=== PATIENT | female | born 1975 | race Caucasian/White ===

== ENCOUNTER 2020-01-02 07:45 | Day surgery (SDC) | payer OTHER ==
[~2020-01-02] VITALS: Ht 170.2 cm; Wt 70.8 kg
--- NOTE | ~2020-01-02 | OR ---
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 POSTOPERATIVE DIAGNOSES: Nasal obstruction due to septal deformity and inferior turbinate hypertrophy. PROCEDURE: Septoplasty, cautery of the inferior turbinates, bilateral. ANESTHESIA: General LMA. CLOTH BLEACHING RANGE BACK TENDER: Farshad. PREOPERATIVE HISTORY: Anna is a 44-year-old lady with nasal obstruction. She had a septoplasty turbinate reduction surgery done in [place], [place] year and a half ago initially improved, but subsequently has had nasal obstruction again, unresponsive to appropriate medications including antihistamines, decongestants, nasal steroid sprays. Exam in the office has shown inferior turbinate hypertrophy and septal deformity on the left posteriorly. She is taken to the operating for the above-mentioned procedures. OPERATIVE PROCEDURE AND FINDINGS: After informed consent, the patient was taken to the operating room, placed in the supine position where general LMA anesthesia was induced. The patient and procedure were verified. The patient received preoperative intranasal oxymetazoline and intravenous Ancef. Headlight speculum exam of the nasal cavity showed good decongestion of the inferior turbinates. She had some columellar widening from the alar cartilage bilaterally, posteriorly on the left side, there was a septal spur, which was obstructive. The septal spur was removed with the Susan. Airway was improved. The inferior turbinates were then cauterized starting on the right side, long handle needle point cautery, multiple submucosal passes on the inferior turbinate starting on the medial and inferior surface anteriorly all the way back posteriorly, excellent decongestion and shrinkage of the turbinate were obtained. Minimal bleeding. Same procedure on the left inferior turbinate. Airway was markedly improved after the PATIENT NAME: ANNA DON OPERATIVE REPORT DATE OF : 75 REPORT #: [id number] PHYSICIAN: TIMUR LOMAS MD PCP: RYAN BARCENAS REPORT IS CONFIDENTIAL AND NOT TO BE RELEASED WITHOUT AUTHORIZATION [facility] [address], [place] [address] Draft procedure. Minimal bleeding, packing was placed, one piece of Merocel trimmed coated with Neosporin 1 on each side, tied anteriorly over a pad. The pharynx was suctioned clear of blood secretions. The patient was then awakened, extubated, transported to the recovery room in good condition. No complications. BLOOD LOSS: Minimal. SPECIMEN: No specimen. DRAINS: No drains. PACKING: One piece of Merocel in each nostril. Timur Lomas MD /MODL /[id number] Copies: ~ PATIENT NAME: ANNA DON OPERATIVE REPORT DATE OF : 75 REPORT #: [id number] PHYSICIAN: TIMUR LOMAS MD PCP: RYAN BARCENAS REPORT IS CONFIDENTIAL AND NOT TO BE RELEASED WITHOUT AUTHORIZATION
[~2020-01-02 07:45] MED LIST: CLONIDINE HCL0.1 MG PO; MAGNESIUM250 M1 PO; MULTI VITAMIN1 EACH PO; PROAIR HFA8.5 GM INH; PROZAC40 MG; ZOLOFT25 MG PO; ZYRTEC10 M3 PO
[2020-01-02] MEDS ORDERED: VITAMIN D310 MC4 PO (07:53)
--- NOTE | 2020-01-02 09:44 | NUR ---
PT IS BACK TO DS FROM PACU. SON IS AT THE BEDSIDE. CALL LIGHT WITHIN REACH. WATER ON BEDSIDE TABLE. SHE IS REPORTING MINIMAL PAIN. NO ADDITIONAL NEEDS AT THIS TIME.
--- NOTE | 2020-01-02 09:50 | NUR ---
01/02/20 0950 Kylie Rockwell 0901 PT ARRIVED IN PACU SLEEPY WITH OPA IN PLACE. 15 PT REACTIVE. OPA REMOVED. 919 C/O 8/10 SINUS PAIN. FENTANYL 50MCG GIVEN IVP. 926 PAIN DOWN TO 4/10. FENTANYL 50MCG GIVEN IVP. VISITING WITH STAFF. 939 PAIN DOWN TO 3/10. TO DS. FAMILY AT BEDSIDE.
[2020-01-02] MEDS ORDERED: NORCO 5-325 TA1 EACH PO (09:57)
[2020-01-02] MEDS ORDERED: KEFLEX500 MG PO (09:58)
--- NOTE | 2020-01-02 10:49 | NUR ---
PT IS ABLE TO GET UP AND AMBULATE TO THE BATHROOM WITH STANDBY ASSIST. SHE REPORTS FEELING LIKE SHE EMPTIED HER BLADDER. SHE REPROTS THAT SHE WOULD LIKE TO GO HOME.
--- NOTE | 2020-01-02 11:00 | NUR ---
PT IS GIVEN VERBAL DC INSTRUCTIONS, SHE VERBALIZES UNDERSTANDING. PT IS EDUCATED ON HOW TO BEST DRESS HERSELF AND TO OPEN HER CURTAIN WHEN SHE IS READY. SHE IS TAKEN TO THE VEHICLE VIA WC BY AYLA JOAQUIN RN.
== END 2020-01-02 11:01 | disposition home or self-care (01) ==
LOC: OPS 07:45 → DS 07:45 → OPS 08:30 → DS 09:15 → OPS 11:01
PROVIDERS: ATTEND Otolaryngology
PROC: 09SM0ZZ Reposition Nasal Septum, Open Approach (ICD-10-PCS; principal; 2020-01-02 08:30)
PROC: 095L0ZZ Destruction of Nasal Turbinate, Open Approach (ICD-10-PCS; 2020-01-02 08:30)
DX: J34.2 Deviated nasal septum (principal); J34.3 Hypertrophy of nasal turbinates; J44.9 Chronic obstructive pulmonary disease, unspecified; F32.9 Major depressive disorder, single episode, unspecified; F41.9 Anxiety disorder, unspecified; I95.9 Hypotension, unspecified; Z79.899 Other long term (current) drug therapy; Z87.891 Personal history of nicotine dependence
CPT/HCPCS: 00160; J0690; J1100; J1885; J2001; J2405; J2704; J3010; J7121

== ENCOUNTER 2020-04-15 10:43 | Emergency (ER) | payer OTHER ==
[~2020-04-15] VITALS: Ht 170.2 cm; Wt 63.5 kg
[~2020-04-15 10:43] MED LIST changes: +KEFLEX500 MG PO; +NORCO 5-325 TA1 EACH PO; +VITAMIN D310 MC4 PO
--- OUTSIDE RECORDS SUMMARY | 2020-04-15 10:46 | XMS ---
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 Guidelines Source: [facility] [place] Guidelines Date: 09/12/2019 Care Coordination: Member is currently engaged in [facility] services. If Mental Health services are needed, please contact: [place] [phone] [place]/ [place] [phone] [facility] Line [phone] E.D. VISIT COUNT (12 MO.) 1 [facility] TOTAL 1 NOTE: Visits indicate total known visits. ED/UCC VISIT TRACKING (12 MO.) 04/15/2020 10:[address] [facility] OR TYPE: Emergency COMPLAINT: - WRIST PAIN INPATIENT VISIT TRACKING (12 MO.) No inpatient visits to display in this time frame [email or web address]
== END 2020-04-15 12:24 | disposition home or self-care (01) ==
LOC: ED 10:43
DX: M67.431 Ganglion, right wrist (principal); J44.9 Chronic obstructive pulmonary disease, unspecified; Z87.891 Personal history of nicotine dependence; Z91.030 Bee allergy status; Z79.899 Other long term (current) drug therapy
CPT/HCPCS: 99283

== ENCOUNTER 2020-08-27 07:05 | Day surgery (SDC) | payer OTHER ==
[~2020-08-27] VITALS: Ht 170.2 cm; Wt 68.0 kg
[~2020-08-27 07:05] MED LIST changes: +HYDROXYZINE HCL10 MG PO; +SUPER B-50 COM1 EACH PO
--- NOTE | 2020-08-27 08:54 | NUR ---
08/27/20 0854 Baylee Stearns 2217-PATIENT ARRIVED TO PACU ON 2L NC RR EVEN LAYING LEFT LATERAL. IVF INFUSING. PATIENT NON AROUSABLE TO VOICE OR TACTILE STIMULI. 2L NC 100% ABDOMEN SOFT.
--- NOTE | 2020-08-27 10:14 | NUR ---
[id number]: PT TO DS RM 11 FROM PACU FOR FURTHER MONITORING. PT DROWSY ON ARRIVAL, ABLE TO DENY ANY PAIN OR NAUSEA AND ENCOURAGED TO PASS FLATUS NEEDED. PT ASKS THIS RN IF IT IS OKAY TO REST FOR A LITTLE LONGER BEFORE CALLING HER SAFE RIDE HOME. THIS RN PROVIDES ICED WATER AND PT ALLOWED TO REST WITH CALL LIGHT IN REACH.
--- NOTE | 2020-08-27 12:17 | NUR ---
1055: THIS RN IN PT ROOM, PT WAKES ON ENTRANCE. PT STATES, "I FEEL SO MUCH BETTER! I JUST NEEDED A LITTLE MORE REST." PT DENIES ANY PAIN OR NAUSEA AND STATES THE DESIRE TO DC HOME. PT DENIES URGE TO VOID AND STATES, "DO I HAVE TO PEE TO LEAVE?" THIS RN REASSURES PT THAT IT IS NOT A REQUIREMENT. PT DRESSES SELF AND THIS RN CONTACTS PT SPOUSE FOR SAFE RIDE HOME. 1110: IV REMOVED WNL AND COBAN PRESSURE DRESSING APPLIED. DC INSTRUCTIONS WITH UPCOMING APPT PRESENTED TO PT, PT DOES NOT HAVE ANY FURTHER QUESTIONS. PT DC FROM DS RM 11 VIA WC TO SPOUSE WAITING AT HOSPITAL ENTRANCE TO HOME.
--- NOTE | 2020-08-28 08:17 | OR ---
[facility] [address] [place], [place] [address] Signed DATE OF OPERATION: 08/27/2020 SURGEON: Keith Gutierres MD PREOPERATIVE DIAGNOSES: 1. Status post resection gastric GIST tumor. 2. Father with colon cancer, age 65. 3. Mother with stomach cancer, age 55. 4. Paternal grandfather with stomach cancer. POSTOPERATIVE DIAGNOSES: 1. Soihs-bs-ooouevbj sized hiatal hernia. 2. Single diverticulum base ileocecal valve. 3. Single diverticulum proximal sigmoid colon. 4. Minimal internal hemorrhoids. PROCEDURES: 1. EGD with CLOtest and biopsies of the antrum. 2. Colonoscopy with hot biopsy. ESTIMATED BLOOD LOSS: None. INDICATIONS: Anna is a 45-year-old female, asked to see me for upper and lower endoscopy by her medical oncologist. 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 She has done wonderful since that time. She also has a strong family history of various cancers including the colon cancer in her father at age 65, stomach cancer in her mother at age 55, and stomach cancer in her paternal grandfather. There were other cancers in the family as well. She has been to genetic testing and is at increased risk for her colon cancer. In the office, I gave her pamphlets on both upper and lower endoscopy. She understands the nature of the 2 tests. She understands there is risk including, but not limited to gas bloating, crampy abdominal pain, bleeding, perforation requiring surgery, and missed diagnosis. She had expressed understanding and wished to proceed. PROCEDURE NOTE: Anna was taken into our endoscopy suite and placed in a supine semi-recumbent position. The posterior oropharynx was anesthetized with lidocaine spray. A bite block was utilized for the case. She was given a total of 10 mg of Versed and 200 mcg fentanyl to Electronically Signed By: KEITH GUTIERRES MD 08/28/20 0817 PATIENT NAME: ANNA DON OPERATIVE REPORT DATE OF : 75 REPORT #: [id number] PHYSICIAN: KEITH GUTIERRES MD PCP: RYAN BARCENAS NP REPORT IS CONFIDENTIAL AND NOT TO BE RELEASED WITHOUT AUTHORIZATION [facility] [address] [place], [place] [address] Signed cover both cases. The adult gastroscope had been introduced and advanced down to the third portion of the duodenum under direct visualization of the camera without difficulty. The duodenum and pyloric channel were unremarkable. She started to cough a bit during the test, but we did examine the stomach very thoroughly and we could not find any scar tissue to represent her surgical site. There was no ulcerations, no inflammatory changes. Upon retroflexion of the scope, she has a zjglb-ge-gtrotaye sized hiatal hernia. The scope was withdrawn up through the area of the GE junction, which was compliant without stricture. Trying to take measurements while she was coughing really was not technically feasible. We did not see any gastric or esophageal varices. Minimal disruption to the Z-line. No Tom's mucosa. The distal middle and upper esophagus were unremarkable. After this, the gas was suctioned out and the gastroscope removed. Anna tolerated the upper endoscopy quite well. Anna was rotated into the left lateral decubitus position. Our initial colonoscope was not insufflating with air and we had to change it out for another scope. Consequently, we did have to give some additional sedation for the colonoscopy. A digital rectal exam was performed and this was unremarkable. The adult colonoscope was introduced and advanced under direct visualization of the camera. She has a little angulation and redundancy in the left colon and it took a few minutes to get through that area. We had to place her into the supine position and used abdominal compression or get the scope around into the cecum itself. Her prep was quite excellent. We could easily see the appendiceal orifice and ileocecal valve. She has a moderate-sized diverticulum at the base of the ileocecal valve. The scope was withdrawn and we found another moderate-sized diverticulum in the proximal sigmoid colon. The rest of the colon was unremarkable. Specifically, no polyps. The rectum was unremarkable. Upon retroflexion of the scope, she has very tiny internal hemorrhoid columns. After this, the gas was suctioned out and the colonoscope removed. Anna tolerated the procedure quite well. RECOMMENDATIONS: I will see Anna back in my office in 7 to 14 days to review her results. She will be on the 5-year rotation, given her family history. MD SHELLY Ba/PAVITHRA /[id number] Electronically Signed By: KEITH GUTIERRES MD 08/28/20 0817 PATIENT NAME: ANNA DON OPERATIVE REPORT DATE OF : 75 REPORT #: [id number] PHYSICIAN: KEITH GUTIERRES MD PCP: RYAN BARCENAS NP REPORT IS CONFIDENTIAL AND NOT TO BE RELEASED WITHOUT AUTHORIZATION [facility] [address] [place], [place] [address] Signed cc: Chart Filed Incomplete DANIEL Garnett MD Andrew L Bower, MD Copies: CHART FILED INCOMPLETE HENRY STARR MD, ANDREW L MD ~ Electronically Signed By: KEITH GUTIERRES MD 08/28/20 0817 PATIENT NAME: ANNA DON OPERATIVE REPORT DATE OF : 75 REPORT #: [id number] PHYSICIAN: KEITH GUTIERRES MD PCP: RYAN BARCENAS NP REPORT IS CONFIDENTIAL AND NOT TO BE RELEASED WITHOUT AUTHORIZATION
--- NOTE | 2020-08-28 10:38 | PATH ---
[facility] [address] [place], [place] [address] Signed SPECIMEN(S): A ANTRUM/PYLORUS SPECIMEN SOURCE: A. ANTRUM/PYLORUS CLINICAL HISTORY: EGD, colonoscopy. Family history of colon CA; history of stomach CA; diverticulosis; internal hemorrhoids; hiatal hernia. Dx: Hiatal hernia. MICROSCOPIC DESCRIPTION: Histologic sections of all submitted blocks are examined by light microscopy. These findings, together with the gross examination, support the pathologic diagnosis. FINAL PATHOLOGIC DIAGNOSIS: Stomach, antrum/pylorus, biopsy: - Antral mucosa with no histopathologic abnormality. - Negative for Helicobacter organisms on HE stain. - Negative for dysplasia or malignancy. NAL:cml:C2NR GROSS DESCRIPTION: The specimen, labeled "AM, antrum biopsy," is received in formalin and consists of one peres soft tissue fragment that measures 0.2 cm in greatest dimension. The specimen is entirely submitted in cassette (A1). JS (under the direct supervision of a pathologist) The Gross Description was prepared using a voice recognition system. The report was reviewed for accuracy; however, sound-alike word errors, addition and/or deletions may occur. If there is any question about this report, please contact Client Services. PERFORMING LABORATORY: The technical component was performed by [facility], [address] [place] [id number] (Barley Steeper: Mercy Steinberg MD; CLIA# [id number]). [facility], [address] [address] (CLIA# [id number]). Diagnostician: Maribell Lema MD Pathologist Electronically Signed 08/28/2020 PATIENT NAME: ANNA DON PATHOLOGY DATE OF : 75 REPORT #: [id number] PHYSICIAN: [facility] PCP: RYAN BARCENAS NP REPORT IS CONFIDENTIAL AND NOT TO BE RELEASED WITHOUT AUTHORIZATION [address] [address] Signed Copies: ~ PATIENT NAME: ANNA DON PATHOLOGY DATE OF : 75 REPORT #: [id number] PHYSICIAN: [facility] PCP: RYAN BARCENAS NP REPORT IS CONFIDENTIAL AND NOT TO BE RELEASED WITHOUT AUTHORIZATION
== END 2020-08-27 11:15 | disposition home or self-care (01) ==
LOC: DS 07:05 → OPS 07:05
PROVIDERS: ATTEND Colon & Rectal Surgery
PROC: 0DB68ZX Excision of Stomach, Via Natural or Artificial Opening Endoscopic, Diagnostic (ICD-10-PCS; principal; 2020-08-27 07:30)
PROC: 0DJD8ZZ Inspection of Lower Intestinal Tract, Via Natural or Artificial Opening Endoscopic (ICD-10-PCS; 2020-08-27 07:30)
DX: K44.9 Diaphragmatic hernia without obstruction or gangrene (principal); K57.30 Diverticulosis of large intestine without perforation or abscess without bleeding; K64.8 Other hemorrhoids; F17.210 Nicotine dependence, cigarettes, uncomplicated; J44.9 Chronic obstructive pulmonary disease, unspecified; Z85.028 Personal history of other malignant neoplasm of stomach; Z80.0 Family history of malignant neoplasm of digestive organs
CPT/HCPCS: 84703; 86677; 88305; 99153; G0500; J2250; J3010

== ENCOUNTER 2021-04-03 11:40 | Emergency (ER) | payer OTHER ==
[~2021-04-03] VITALS: Ht 170.2 cm; Wt 63.5 kg
[2021-04-03] MEDS ORDERED: SPIRIVA RESPIMAT4 G1 INH (12:46)
[2021-04-03] MEDS ORDERED: OXYBUTYNIN CHLOR5 MG PO (12:47)
[2021-04-03] MEDS ORDERED: AMOXICILLIN500 MG PO (16:15)
== END 2021-04-03 16:30 | disposition home or self-care (01) ==
LOC: ED 11:40
DX: L04.0 Acute lymphadenitis of face, head and neck (principal); J02.0 Streptococcal pharyngitis; J44.9 Chronic obstructive pulmonary disease, unspecified; Z87.891 Personal history of nicotine dependence; Z91.013 Allergy to seafood; Z88.8 Allergy status to other drugs, medicaments and biological substances; Z79.899 Other long term (current) drug therapy; Z79.51 Long term (current) use of inhaled steroids
CPT/HCPCS: 70491; 80048; 83605; 85025; 96375; 99284-25; J0696; J1170; J7030; Q9967; U0003